=== PATIENT | male | born 1995 | race Caucasian/White ===

== ENCOUNTER 2017-03-15 21:33 | Emergency (ER) | payer OTHER ==
[2017-03-15 21:48] VITALS: BP 128/71
--- NOTE | 2017-03-15 22:09 | EDM.PDOC ---
ED HPI GENERAL MEDICAL PROBLEM - General Chief Complaint: Laceration Stated Complaint: LEFT HAND CUT BELOW THUMB Time Seen by Provider: 03/15/17 21:53 Source of Information: Reports: Patient History Limitations: Reports: No Limitations - History of Present Illness INITIAL COMMENTS - FREE TEXT/NARRATIVE: 21-year-old male presents for evaluation treatment of a laceration to his left hand proximal thumb. Injury occurred around 7:30 or 8:00 this evening. Patient reports he was at work. He states that he took a knife and was cutting a bagel open when the knife slipped and he accidentally cut his hand. Patient is right- handed. His tetanus is up-to-date. He denies any numbness, tingling or decreased range of motion to the thumb. Onset: Today Location: Reports: Upper Extremity, Left Left 1-Thumb Pain Score (Numeric/FACES): 0 - Related Data Allergies Allergy/AdvReac Type Severity Reaction Status Date / Time No Known Allergies Allergy Verified 08/07/15 19:50 Home Meds: Home Meds Cyanocobalamin (Vitamin B12) [Vitamin B12] 500 mcg PO DAILY 08/07/15 [History] Past Medical History - Past Health History Medical/Surgical History: Denies Medical/Surgical History Psychiatric History: Reports: Anxiety Social & Family History - Tobacco Use Smoking Status *Q: Never Smoker Years of Tobacco use: 3 Packs/Tins Daily: 0.7 - Caffeine Use Caffeine Use: Reports: Coffee - Recreational Drug Use Recreational Drug Use: No - Living Situation & Occupation Living situation: Reports: Single Occupation: Employed ED ROS GENERAL - Review of Systems Review Of Systems: See Below Musculoskeletal: Reports: Other (no decreased ROM to the left hand) Skin: Reports: Wound (left hand base of thumb) Neurological: Denies: Numbness, Tingling ED EXAM, SKIN/RASH Exam: See Below Exam Limited By: No Limitations General Appearance: Alert, WD/WN, No Apparent Distress Respiratory/Chest: No Respiratory Distress Cardiovascular: Normal Peripheral Pulses, Regular Rate, Rhythm Peripheral Pulses: 2+: Radial (L) Extremities: Normal Inspection, Normal Range of Motion (patient is able to flex , extend, abduct, adduct and oppose fingers to thumb both on his own and against resistance), Normal Capillary Refill Neurological: Alert, Oriented, Normal Cognition Psychiatric: Normal Affect, Normal Mood Skin: Warm, Dry, Normal Color, Wound/Incision (1cm superficial laceration to the left hand ventral aspect over the 1st metacarpal ) Location, Skin: Upper Extremity, Left Associated features: Tenderness ED SKIN PROCEDURES - Laceration/Wound Repair Left Ventral Hand Lac/Wound length In cm: 1 Appearance: Superficial, Irregular Distal NVT: Neuro & Vascular Intact, No Tendon Injury Skin Prep: Chlorhexidine (Hibiciens), Saline, Sterile Drape Closed with: Dermabond Sterile Dressing Applied: Nurse Tetanus Status Addressed: Yes Complications: No Course - Vital Signs Last Recorded V/S: Last Vital Signs Temp 36.7 C 03/15/17 21:47 Pulse 86 03/15/17 21:47 Resp 20 03/15/17 21:47 BP 128/71 03/15/17 21:47 Pulse Ox 100 03/15/17 21:47 - Re-Assessments/Exams Free Text/Narrative Re-Assessment/Exam: 03/15/17 22:30 Wound was repaired with Dermabond. Patient tolerated procedure well. Tetanus is up-to-date. Discharge instructions as documented. Departure - Departure Time of Disposition: 22:32 Disposition: Home, Self-Care 01 Condition: Good Clinical Impression: Laceration - Discharge Information Instructions: Laceration Care, Adult Referrals: PCP,None [Primary Care Provider] - Forms: ED Department Discharge Additional Instructions: monitor wound for signs of infection such as increased swelling, pus or redness. Present to the clinic or the ER should these develop. The glue should fall off on its own in about 7 to 10 days. Do not pick at it. Do not apply antibacterial ointment as this can break down the glue. Wash the wound with gentle soap and water. Please return to the ER for any problems, questions or concerns.
== END 2017-03-15 22:40 | disposition home or self-care (01) ==
LOC: JD.ED 21:33
DX: S61.412A Laceration without foreign body of left hand, initial encounter (principal); W26.0XXA Contact with knife, initial encounter
CPT/HCPCS: 12001; 99282-25; 99283-25

== ENCOUNTER 2018-02-03 16:58 | Emergency (ER) | payer OTHER ==
[2018-02-03 17:15] VITALS: BP 129/65
--- NOTE | 2018-02-03 17:47 | EDM.PDOC ---
ED HPI GENERAL MEDICAL PROBLEM - General Chief Complaint: General Stated Complaint: NEED A CAT SCAN Time Seen by Provider: 02/03/18 17:23 Source of Information: Reports: Patient History Limitations: Reports: No Limitations - History of Present Illness INITIAL COMMENTS - FREE TEXT/NARRATIVE: 22-year-old male sent over by the clinic for evaluation and treatment of left- sided pleuritic chest pain. Patient reports he became ill on Saturday with pain to the left side of his chest. States it hurts only when he takes a deep breath. He reports associated symptoms of malaise, headache and a sore throat. He states he was feeling lightheaded and nauseous and has no appetite. He has not had any syncopal episodes, abdominal pain, vomiting or hemoptysis recently. Had one episode of hemoptysis several weeks ago, this was a one-time occurrence. He was diaphoretic earlier in the clinic. He reports his cough is productive and is coughing up a thick green and griffin sputum. Patient reports he has actually been feeling unwell intermittently for several months. Seen in the walk-in clinic several weeks ago. He has since followed up with Maria Luisa Arreola about one week ago. He was found to have elevated liver enzymes during his last visit. Testing including West Nile, Lyme's disease, hepatitis panel, TB, CBC, CMP and CRP have all been done. Today in the clinic he had labs repeated in his liver enzymes were found to be worsening. Today's CRP in the clinic was 47.2, alkaline phosphatase 557, AST 253, ALT 555 and total bilirubin of 2.3. TSH was within normal limits at 1.42. CRP elevated at 47.2. White blood cell count elevated at 12. No Chest x-ray was done but he did have an EKG which showed a normal sinus rhythm. RUQ abdominal ultrasound showed no abnormalities. Patient denies any drug use. He did go to [place] over the weekend but did not drink much, only 1 beer over the weekend, he was not feeling good. He states he is not much of an drinker. Throat Pain Score (Numeric/FACES): 5 - Related Data Allergies Allergy/AdvReac Type Severity Reaction Status Date / Time No Known Allergies Allergy Verified 02/03/18 17:15 Home Meds: Home Meds . [No Known Home Meds] 08/13/18 [History] Past Medical History - Past Health History Medical/Surgical History: Denies Medical/Surgical History Psychiatric History: Reports: Anxiety Social & Family History - Tobacco Use Smoking Status *Q: Never Smoker - Caffeine Use Caffeine Use: Reports: Coffee - Recreational Drug Use Recreational Drug Use: No - Living Situation & Occupation Living situation: Reports: Single Occupation: Employed ED ROS GENERAL - Review of Systems Review Of Systems: See Below Constitutional: Reports: Malaise, Fatigue, Diaphoresis HEENT: Reports: Throat Pain Respiratory: Reports: Pleuritic Chest Pain, Cough, Sputum. Denies: Hemoptysis GI/Abdominal: Reports: Nausea. Denies: Abdominal Pain, Vomiting Neurological: Denies: Syncope ED EXAM, GENERAL - Physical Exam Exam: See Below Exam Limited By: No Limitations General Appearance: Alert, WD/WN, No Apparent Distress Eye Exam: Bilateral Eye: Normal Inspection Ears: Normal External Exam, Normal Canal, Hearing Grossly Normal, Normal TMs Nose: Normal Inspection Throat/Mouth: Normal Inspection, Normal Lips, Normal Voice, No Airway Compromise , Other (posterior oropharynx petechiae) Neck: Normal Inspection, Non-Tender, Full Range of Motion Respiratory/Chest: No Respiratory Distress, Lungs Clear, Normal Breath Sounds Cardiovascular: Normal Peripheral Pulses, Regular Rate, Rhythm, No Murmur GI/Abdominal: Normal Bowel Sounds, Soft, Non-Tender, No Organomegaly Neurological: Alert, Oriented, Normal Cognition Psychiatric: Normal Affect, Normal Mood Skin Exam: Warm, No Rash, Diaphoretic Course - Vital Signs Last Recorded V/S: Last Vital Signs Temp 99.0 F 02/03/18 17:11 Pulse 84 02/03/18 17:11 Resp 16 02/03/18 17:11 BP 129/65 02/03/18 17:11 Pulse Ox 100 02/03/18 17:11 - Orders/Labs/Meds Orders: Active Orders 24 hr Category Date Time Status Peripheral IV Care [RC] . DIRECTED Care 02/03/18 18:38 Active Chest 2V [CR] Stat Exams 02/03/18 17:41 Taken Peripheral IV Insertion Adult [OM.PC] Routine Oth 02/03/18 18:38 Ordered Labs: Laboratory Tests 02/03/18 02/03/18 02/03/18 Range/Units 17:55 17:55 17:55 PT 11.4 (9.5-12.1) SECONDS INR 1.05 APTT 37 H (24-31) SECONDS D-Dimer, Quantitative 1.54 H (0.19-0.50) mg/L Lactic Acid 1.1 (0.4-2.0) mmol/L Monoscreen (NEGATIVE) 02/03/18 Range/Units 17:55 PT (9.5-12.1) SECONDS INR APTT (24-31) SECONDS D-Dimer, Quantitative (0.19-0.50) mg/L Lactic Acid (0.4-2.0) mmol/L Monoscreen Positive H (NEGATIVE) Meds: Medications Discontinued Medications Generic Name Dose Route Start Last Admin Trade Name Freq PRN Reason Stop Dose Admin Sodium Chloride 100 mls @ 60 mls/hr 02/03/18 19:00 02/03/18 19:16 Normal Saline IV 60 mls/hr ASDIRECTED TANVIR Administration Iopamidol 100 ml 02/03/18 18:58 02/03/18 19:16 Isovue-370 (76%) IVPUSH 02/03/18 18:59 100 ml ONETIME ONE Administration Sodium Chloride 10 ml 02/03/18 18:38 02/03/18 20:33 Saline Flush FLUSH 10 ml ASDIRECTED PRN Administration Keep Vein Open Sodium Chloride 10 ml 02/03/18 18:58 02/03/18 19:16 Saline Flush FLUSH 02/03/18 18:59 10 ml ONETIME ONE Administration - Radiology Interpretation Free Text/Narrative:: 2 view chest xray shows no acute intrathoracic process CT chest Technique: Multiple axial sections through the chest were obtained. Intravenous contrast was utilized. Comparison: No previous study. Findings: Pulmonary arteries are well-opacified. No filling defects are seen to indicate pulmonary embolism. Mediastinum and hilar regions are unremarkable. No pericardial thickening is seen. Small portion of the visualized upper abdominal structures are within normal limits. Spleen appears somewhat enlarged but is not completely included on this exam to confirm. Lungs are clear without acute parenchymal change. No pleural effusions are seen. Bone window settings were reviewed which appear within normal limits for the patient's age. Impression: 1. Spleen is suggested to be enlarged but is not completely included on this exam to confirm. Ultrasound study could be obtained to confirm or rule out. 2. No findings of pulmonary embolism are seen. 3. CT study of the chest is otherwise unremarkable. - Re-Assessments/Exams Free Text/Narrative Re-Assessment/Exam: 02/03/18 18:47 d-dimer elevated at 1.54. Will obtain CT PE study to rule out PE. 02/03/18 20:30 Reviewed the labs and imaging with the patient. + for mononucleosis. Symptoms consistent with mono and pleurisy. Educated on risk of splenic rupture. Spleen is enlarged on CT (not completely visualized). Will discharge home with close follow-up in the clinic, will need to ensure liver enzymes return to normal. Discharge instructions as documented. Departure - Departure Time of Disposition: 20:30 Disposition: Home, Self-Care 01 Condition: Fair Clinical Impression: Mononucleosis, Pleurisy - Discharge Information *PRESCRIPTION DRUG MONITORING PROGRAM REVIEWED*: No *COPY OF PRESCRIPTION DRUG MONITORING REPORT IN PATIENT MI: No Instructions: Infectious Mononucleosis, [id number] Referrals: PCP,None [Primary Care Provider] - Maria Luisa Arreola MD [Ordering Only Provider] - Forms: ED Department Discharge Additional Instructions: Mononucleosis is a virus. It spread by saliva. Avoid sharing any cups, toothbrushes, kissing, etc. Symptomatic care. Rest. Make sure you are drinking plenty of fluids. Motrin as needed for fevers and discomfort. Avoid Tylenol as this can be hard on the liver. No strenuous activity the next 4-6 weeks. Follow-up with primary care provider within 2 weeks for recheck of your symptoms. Liver enzymes should go down on their own. Please return to the ER for symptoms change or worsen. If you develop pain to the left upper quadrant of your abdomen, lightheadedness or syncope please return to the ER immediately. - My Orders Last 24 Hours: My Active Orders 02/03/18 17:41 Chest 2V [CR] Stat 02/03/18 18:38 Peripheral IV Care [RC] . DIRECTED Peripheral IV Insertion Adult [OM.PC] Routine - Assessment/Plan Last 24 Hours: My Active Orders 02/03/18 17:41 Chest 2V [CR] Stat 02/03/18 18:38 Peripheral IV Care [RC] . DIRECTED Peripheral IV Insertion Adult [OM.PC] Routine
[2018-02-03] MEDS ORDERED: Sodium Chloride 0.9% 10 ML Syringe FLUSH PRN (18:38)
[2018-02-03] MEDS ORDERED: Sodium Chloride 0.9% 10 ML Syringe FLUSH ONE (18:58)
[2018-02-03] MEDS ORDERED: Iopamidol 755 Mg/ML 100 ML Bottle IVPUSH ONE (18:58)
[2018-02-03] MEDS ORDERED: Sodium Chloride 0.9% 100 ML IV SCH (19:00)
--- NOTE | 2018-02-03 19:41 | CT ---
CT chest Technique: Multiple axial sections through the chest were obtained. Intravenous contrast was utilized. Comparison: No previous study. Findings: Pulmonary arteries are well-opacified. No filling defects are seen to indicate pulmonary embolism. Mediastinum and hilar regions are unremarkable. No pericardial thickening is seen. Small portion of the visualized upper abdominal structures are within normal limits. Spleen appears somewhat enlarged but is not completely included on this exam to confirm. Lungs are clear without acute parenchymal change. No pleural effusions are seen. Bone window settings were reviewed which appear within normal limits for the patient's age. Impression: 1. Spleen is suggested to be enlarged but is not completely included on this exam to confirm. Ultrasound study could be obtained to confirm or rule out. 2. No findings of pulmonary embolism are seen. 3. CT study of the chest is otherwise unremarkable. Diagnostic code #3
--- NOTE | 2018-02-04 07:41 | CR ---
Chest: Two views of the chest were obtained. Comparison: No prior chest x-ray. Heart size and mediastinum are normal. Lungs are clear. Bony structures are unremarkable. Impression: 1. Nothing acute is seen on two-view chest x-ray. Diagnostic code #1
== END 2018-02-03 20:45 | disposition home or self-care (01) ==
LOC: JD.ED 16:58
DX: R09.1 Pleurisy (principal); B27.90 Infectious mononucleosis, unspecified without complication
CPT/HCPCS: 36415; 71046; 71275; 83605; 85379; 85610; 85730; 86308; 99284; J7030; J7050; Q9967